=== PATIENT | female | born 1990 | race Two or more races ===

== ENCOUNTER 2020-03-28 11:28 | Emergency (ER) | payer OTHER ==
[~2020-03-28] VITALS: Ht 160 cm; Wt 55.1 kg
--- NOTE | 2020-03-28 12:48 | NUR ---
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
[2020-03-28] MEDS ORDERED: LIDOCAINE-MPF 1%, 5ML INFIL ONE (14:30)
[2020-03-28] MEDS: DIPH,PERTUSS(ACELL),TET VAC/PF 0.5 ML IM-VACC ONE (14:30)
[2020-03-28] MEDS ORDERED: DIPH,PERTUSS(ACELL),TET VAC/PF 0.5 ML IM-VACC ONE (15:05)
[2020-03-28 15:28] VITALS: BP 112/78
== END 2020-03-28 15:29 | disposition home or self-care (01) ==
LOC: ED 13:30
DX: S61.012A Laceration without foreign body of left thumb without damage to nail, initial encounter (principal); X58.XXXA Exposure to other specified factors, initial encounter; Y93.89 Activity, other specified; Y92.69 Other specified industrial and construction area as the place of occurrence of the external cause; Y99.0 Civilian activity done for income or pay
CPT/HCPCS: 12001; 90715; 99282